=== PATIENT | female | born 1975 | race Asian ===

== ENCOUNTER 2023-05-31 14:27 | Outpatient (CLI) | payer BC | END 2023-05-31 14:28 | disposition home or self-care (01) | LOC: SCSRAD 14:27 | PROVIDERS: ATTEND Nurse Practitioner Family | DX: S99.922A Unspecified injury of left foot, initial encounter (principal) ==

== ENCOUNTER 2023-07-05 14:35 | Outpatient (CLI) | payer BC | END 2023-07-05 14:36 | disposition home or self-care (01) | LOC: BICMAMMO 14:35 | PROVIDERS: ATTEND Family Medicine | DX: N64.89 Other specified disorders of breast (principal) | CPT/HCPCS: G0279 ==